=== PATIENT | male | born 1970 | race Caucasian/White ===

== ENCOUNTER 2016-03-30 10:01 | Emergency (ER) | payer SELFPAY ==
[~2016-03-30] VITALS: Ht 190.5 cm; Wt 110.0 kg
[~2016-03-30 10:01] MED LIST: IBUP800T23 PO; TRAM50 PO; WHEELCHAIR RENTAL
[2016-03-30 10:26] VITALS: BP 129/82; PULSE 94; RESP 18; TEMP 96.4
[2016-03-30] MEDS ORDERED: GABA100C4 PO (11:24)
[2016-03-30] MEDS ORDERED: ACYC800T PO (11:24)
--- NOTE | 2016-03-30 11:25 | PD ---
HPI Chief Complaint: Skin Problem Time Seen by Provider: 11:00 Travel History International Travel<30 days: No Contact w/Intl Traveler<30days: No Traveled to known affect area: No History of Present Illness HPI Patient is a 45-year-old male who presented to the emergency room evaluation of a rash. Patient states the rash erupted last week, he states it is painful. He describes the pain as a burning sensation. The burning sensation preceded the rash eruption. He denies any fever, chills, nausea, vomiting, headache, shortness of breath. PFSH Past Medical History Diabetes: Yes Family History Family History: Negative Social History Alcohol Use: Yes (occasionally) Tobacco Use: No Substance Use: No Allergies-Medications (Allergen,Severity, Reaction): Coded Allergies: No Known Allergies (Unverified , 03/30/16) Reported Meds & Prescriptions Reported Meds & Active Scripts Active Gabapentin 100 Mg Cap 100 Mg PO TID PRN 7 Days Acyclovir 800 Mg Tab 800 Mg PO 5 TIMES A DAY 7 Days Review of Systems Except as stated in HPI: all other systems reviewed are Neg Musculoskeletal: Positive: Pain Skin: Positive Rash, Positive Itching Physical Exam Narrative GENERAL: Well-nourished, well-developed patient. SKIN: Warm and dry. Clustered vesicular rash noted to the left anterior chest, wall no surrounding erythema or induration noted. Does not cross the midline. Vesicles appear to be scabbing over. HEAD: Normocephalic. EYES: No scleral icterus. No injection or drainage. NECK: Supple, trachea midline. No JVD or lymphadenopathy. CARDIOVASCULAR: Regular rate and rhythm without murmurs, gallops, or rubs. RESPIRATORY: Breath sounds equal bilaterally. No accessory muscle use. GASTROINTESTINAL: Abdomen soft, non-tender, nondistended. MUSCULOSKELETAL: No cyanosis, or edema. BACK: Nontender without obvious deformity. No CVA tenderness. Data Data Last Documented VS Vital Signs Date Time Temp Pulse Resp B/P Pulse Ox O2 Delivery O2 Flow Rate FiO2 03/30/16 10:26 96.4 94 18 129/82 [facility] Medical Decision Making Medical Screen Exam Complete: Yes Emergency Medical Condition: Yes Interpretation(s) Vital Signs Date Time Temp Pulse Resp B/P Pulse Ox O2 Delivery O2 Flow Rate FiO2 03/30/16 10:26 96.4 94 18 129/82 Differential Diagnosis Contact dermatitis versus allergic reaction versus folliculitis versus eczema versus shingles versus other Narrative Course Patient is a 45-year-old male who presented to emergency room for evaluation of 1 week of a rash. The rash was preceded by a burning sensation which started a few days prior. Patient's physical examination is consistent with herpes zoster. Patient was advised that this is a self-limiting condition and will likely improve on its own with time. He was encouraged to keep area clean and dry, avoid touching it or scratching it. He was advised to maintain strict hand washing to avoid transmission. Patient was educated on medications that may help decrease the duration of his symptoms, however it has been a week since they started an lesions appears to be resolving patient was educated that the pain may linger despite the rash clearing and this is also normal. He should follow-up with a primary doctor. He was advised to return to emergency department for any new or worsening symptoms. Patient verbalized understanding of these instructions. Patient is stable for discharge. Diagnosis Primary Impression: Herpes zoster Qualified Code: B02.9 - Herpes zoster without complication Referrals: [facility] Primary Care Physician Patient Instructions: General Instructions, Shingles (ED) Additional Instructions: Follow-up with a primary doctor or at [facility] Take medications as directed Keep lesions clean and dry Return to emergency department for any new or worsening symptoms Med/Other Pt SpecificInfo: Prescription(s) given Scripts Gabapentin 100 Mg [id number] Mg PO TID PRN (PAIN SCALE 1 TO 10) 7 Days Ref 0 Prov:Tracey Lui 03/30/16 Acyclovir 800 Mg [id number] Mg PO 5 TIMES A DAY 7 Days Ref 0 Prov:Tracey Lui 03/30/16 Disposition: 01 DISCHARGE HOME Condition: Stable Tracey Lui Mar 30, 2016 11:25
== END 2016-03-30 11:38 | disposition home or self-care (01) ==
LOC: NED 10:01 → NEPB 11:38
DX: B02.9 Zoster without complications (principal)
CPT/HCPCS: 99282